=== PATIENT | male | born 1980 | race American Indian/Alaskan Native ===

== ENCOUNTER 2018-02-19 00:02 | Emergency (ER) | payer SELFPAY ==
[2018-02-19] MEDS ORDERED: TYLENOL PO ONE (00:51)
[2018-02-19] MEDS ORDERED: TYLENOL ONE (00:55)
[2018-02-19] MEDS ORDERED: IBUPROFEN ONE (04:25)
[2018-02-19] MEDS ORDERED: IBUPROFEN PO ONE (04:26)
[2018-02-19] MEDS ORDERED: LIDOCAINE VISCOUS 2% PO ONE (05:35)
--- NOTE | 2018-02-19 05:38 | Emergency Department Report ---
ED ENT HPI - General Chief complaint: Sore Throat Stated complaint: SWOLLEN TONSILS EAR PAIN Time Seen by Provider: 02/19/18 05:33 Source: patient Mode of arrival: Ambulatory Limitations: No Limitations - History of Present Illness Initial comments: 37-year-old -Citizen Of [place] male with a history of HIV comes in complaining of sore throat and earache 6 days. Patient reports that it is difficult to swallow because of pain. Patient denies any fever or chills no nausea no vomiting. MD complaint: sore throat, ear pain -: days(s) (6) Location: R ear, throat Severity: severe Severity scale (0 -10): 10 Quality: stabbing, sharp Consistency: constant Improves with: none Worsens with: swallowing Associated Symptoms: pain with swallowing, sore throat. denies: fever, cough, gum swelling, toothache, tinnitus, hearing loss, discharge from ear, rhinorrhea, other - Related Data Previous Rx's Medication Instructions Recorded Last Taken Type Amoxicillin/Potassium Clav 1 each PO BID #20 tablet 02/19/18 Unknown Rx [Augmentin 875-125 Tablet] Ibuprofen [Motrin 600 MG tab] 600 mg PO Q8H PRN #30 tablet 02/19/18 Unknown Rx Allergies Allergy/AdvReac Type Severity Reaction Status Date / Time No Known Allergies Allergy Unverified 02/19/18 00:47 ED Dental HPI - General Chief complaint: Sore Throat Stated complaint: SWOLLEN TONSILS EAR PAIN Time Seen by Provider: 02/19/18 05:33 Source: patient Mode of arrival: Ambulatory Limitations: No Limitations - Related Data Previous Rx's Medication Instructions Recorded Last Taken Type Amoxicillin/Potassium Clav 1 each PO BID #20 tablet 02/19/18 Unknown Rx [Augmentin 875-125 Tablet] Ibuprofen [Motrin 600 MG tab] 600 mg PO Q8H PRN #30 tablet 02/19/18 Unknown Rx Allergies Allergy/AdvReac Type Severity Reaction Status Date / Time No Known Allergies Allergy Unverified 02/19/18 00:47 ED Review of Systems ROS: Stated complaint: SWOLLEN TONSILS EAR PAIN Other details as noted in HPI Comment: All other systems reviewed and negative ENT: ear pain, throat pain ED Past Medical Hx - Past Medical History Previous Medical History?: Yes Hx HIV: Yes - Surgical History Past Surgical History?: No - Social History Smoking Status: Current Every Day Smoker Substance Use Type: Alcohol - Medications Home Medications: Home Medications Medication Instructions Recorded Confirmed Last Taken Type Amoxicillin/Potassium Clav 1 each PO BID #20 tablet 02/19/18 Unknown Rx [Augmentin 875-125 Tablet] Ibuprofen [Motrin 600 MG tab] 600 mg PO Q8H PRN #30 tablet 02/19/18 Unknown Rx ED Physical Exam - General Limitations: No Limitations General appearance: alert, in no apparent distress - Head Head exam: Present: atraumatic, normocephalic - Eye Eye exam: Present: EOMI - Expanded ENT Exam Expanded Throat exam: Positive: tonsillar erythema, tonsillomegaly, tonsillar exudate - Neck Neck exam: Present: tenderness, full ROM, lymphadenopathy - Respiratory Respiratory exam: Present: normal lung sounds bilaterally. Absent: respiratory distress - Cardiovascular Cardiovascular Exam: Present: regular rate, normal rhythm. Absent: systolic murmur, diastolic murmur, rubs, gallop - Neurological Exam Neurological exam: Present: alert, oriented X3 - Psychiatric Psychiatric exam: Present: normal affect, normal mood - Skin Skin exam: Present: warm, dry, intact, normal color. Absent: rash ED Course Vital Signs 02/19/18 02/19/18 00:19 05:50 Temperature 99.0 F 98.6 F Pulse Rate 82 74 Respiratory 18 16 Rate Blood Pressure 151/82 Blood Pressure 147/98 [Left] O2 Sat by Pulse 100 96 Oximetry ED Medical Decision Making - Medical Decision Making Patient has been evaluated by this provider in fast track. Patient is given Tylenol and ibuprofen during his visit. Patient also given viscous lidocaine in fast track. Rapid strep shows positive Discussed the patient on discharge from Augmentin 875 twice a day for 10 days and ibuprofen 600 mg 3 times a day when necessary. Follow-up with his primary care provider symptoms persist or gets worse Critical care attestation.: If time is entered above; I have spent that time in minutes in the direct care of this critically ill patient, excluding procedure time. ED Disposition Clinical Impression: Strep pharyngitis Disposition: DC-01 TO HOME OR SELFCARE Is pt being admited?: No Does the pt Need Aspirin: No Condition: Stable Instructions: Strep Throat (ED) Additional Instructions: Please complete antibiotics as prescribed. Pain medication as needed. Please increase her fluid intake and advance her diet as tolerated. Prescriptions: Amoxicillin/Potassium Clav [Augmentin 875-125 Tablet] 1 each PO BID #20 tablet Ibuprofen [Motrin 600 MG tab] 600 mg PO Q8H PRN #30 tablet PRN Reason: Pain Referrals: PRIMARY CARE,MD [Primary Care Provider] - 3-5 Days [facility] [Provider Group] - 3-5 Days Forms: Accompanied Note, Work/School Release Form(ED)
[2018-02-19 05:51] VITALS: BP 147/98
== END 2018-02-19 05:50 | disposition home or self-care (01) ==
LOC: ED 00:02
DX: J02.0 Streptococcal pharyngitis (principal); Z21 Asymptomatic human immunodeficiency virus [HIV] infection status; F17.200 Nicotine dependence, unspecified, uncomplicated
CPT/HCPCS: 87430; 99283